=== PATIENT | male | born 1975 | race Caucasian/White ===

== ENCOUNTER 2022-07-19 18:15 | Emergency (ER) | payer SELFPAY ==
[2022-07-19 19:08] LABS: ALT (SGPT) 31 U/L (8-55); AST (SGOT) 69 U/L (5-34); Albumin 3.7 g/dL (3.5-5.0); Alkaline Phosphatase 52 U/L (40-110); Anion Gap 15 mmol/L (10-20); BUN (Urea Nitrogen) 4 mg/dL (8.9-20.6); Bilirubin, Total 0.6 mg/dL (0.2-1.2); Calc. Creatinine Clearance 0 mL/min (70-130); Calcium 8.9 mg/dL (7.8-10.44); Carbon Dioxide 24 mmol/L (22-29); Chloride 92 mmol/L (98-107); Estimated GFR 114; Globulin 2.8 g/dL (2.4-3.5); Glucose 102 mg/dL (70-105); Magnesium 1.7 mg/dL (1.6-2.6); Potassium 3.1 mmol/L (3.5-5.1); Protein, Total 6.5 g/dL (6.0-8.3); Sodium 128 mmol/L (136-145)
[2022-07-19] MEDS ORDERED: Sodium Chloride 0.9% 1,000 ML ONE (19:22)
[2022-07-19 19:31] LABS: Acetaminophen Less than 10.0 mcg/mL (10.0-30.0); Alcohol 318 mg/dL (Less than 10); Salicylate Less than 8.0 mg/dL (15.0-30.0)
[2022-07-19 19:40] LABS: Band 2 % (5-11); Hemoglobin 15.8 g/dL (14.0-18.0); Lymphocytes 55 % (21-51); MDiff Complete? YES; Mean Corpuscular HGB CONC 37.8 g/dL (32.0-36.0); Mean Corpuscular Hemoglobin 38.1 pg (27.0-31.0); Mean Corpuscular Volume 100.6 fl (78.0-98.0); Mean Platelet Volume 11.2 fL (7.4-10.4); Monocytes 5 % (0-10); Neutrophil 38 % (42-75); Platelet Count 69 10x3/uL (130-400); RBC Distribution Width 9.7 % (11.5-14.5); Red Blood Cell (RBC) Count 4.16 mill/uL (4.70-6.10); White Blood Cell (WBC) Count 6.4 10x3/uL (4.8-10.8)
[2022-07-19] MEDS ORDERED: Acetaminophen 500 MG TAB ONE (20:32)
[2022-07-19] MEDS ORDERED: Potassium Chloride 20 MEQ/100 ML PREMIX BAG ONE (20:34)
[2022-07-19 22:14] LABS: Troponin I Less than 0.010 ng/mL (< 0.028)
[2022-07-19] MEDS ORDERED: Potassium Chloride 20 MEQ TAB ONE (22:26)
== END 2022-07-19 22:36 | disposition home or self-care (01) ==
LOC: MADERS 18:15
DX: F10.10 Alcohol abuse, uncomplicated (principal); R07.89 Other chest pain; E87.6 Hypokalemia; E87.1 Hypo-osmolality and hyponatremia; D69.6 Thrombocytopenia, unspecified; F17.210 Nicotine dependence, cigarettes, uncomplicated; Y90.8 Blood alcohol level of 240 mg/100 ml or more
CPT/HCPCS: 71045; 80053; 80307; 83735; 83880; 84484; 85025; 93005; 96365; 96366; J3480; J7050